=== PATIENT | male | born 1975 | race Caucasian/White ===

== ENCOUNTER 2018-09-05 22:32 | Emergency (ER) | payer OTHER ==
[~2018-09-05] VITALS: Ht 172.7 cm; Wt 90.9 kg
[~2018-09-05 22:32] MED LIST: SM I100T PO; [UNRECOGNIZED DRUG - CODE] PO
[2018-09-05 22:57] LABS: BASO % 0.4 % (0.0-1.0); EOS # 0.2 10^3/uL (0.0-0.50); EOS % 2.1 % (0.0-3.0); HEMATOCRIT 48.3 % (42.0-52.0); HEMOGLOBIN 15.5 g/dl (13.5-17.5); LYMPH # 2.8 10^3/uL (1.5-4.5); LYMPH % 28.8 % (24.0-44.0); MEAN CORPUSCULAR HEMOGLOBIN 29.9 pg (27.0-33.0); MEAN CORPUSCULAR HGB CONC 32.1 g/dl (32.0-36.5); MEAN CORPUSCULAR VOLUME 93.1 fl (80.0-96.0); MONO # 0.5 10^3/uL (0.0-0.8); MONO % 5.3 % (0.0-5.0); NEUTROPHILS % 62.9 % (36.0-66.0); PLATELET COUNT, AUTOMATED 248 10^3/uL (150-450); RED BLOOD COUNT 5.19 10^6/uL (4.30-6.10); WHITE BLOOD COUNT 9.6 10^3/uL (4.0-10.0)
[2018-09-05] MEDS ORDERED: NS 1,000 ML IV ONE (23:00)
[2018-09-05 23:27] LABS: ACETAMINOPHEN LEVEL < 2.0 UG/ML (10.0-30.0); ALBUMIN 4.2 GM/DL (3.2-5.2); ALT/SGPT 36 U/L (12-78); BILIRUBIN,DIRECT < 0.1 MG/DL (0.0-0.2); BILIRUBIN,TOTAL 0.4 MG/DL (0.2-1.0); BLOOD UREA NITROGEN 6 MG/DL (7-18); CALCIUM LEVEL 8.5 MG/DL (8.5-10.1); CARBON DIOXIDE LEVEL 25 MEQ/L (21-32); CHLORIDE LEVEL 109 MEQ/L (98-107); CK-MB VALUE MASS < 1.0 NG/ML (<3.6); CPK CREATINE PHOSPHOKINASE 124 U/L (39-308); CREATININE FOR GFR 0.95 MG/DL (0.70-1.30); ETHYL ALCOHOL (ETHANOL) 0.144 % (0.000-0.010); GLOMERULAR FILTRATION RATE > 60.0 (>60); GLUCOSE, FASTING 121 MG/DL (70-100); MB/CK RELATIVE INDEX 0.81 (< OR =4); SALICYLATE LEVEL 4.8 MG/DL (5.0-30.0); SODIUM LEVEL 144 MEQ/L (136-145); TROPONIN I < 0.02 NG/ML (< 0.10)
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
[2018-09-06] VITALS: BP 121/64
[2018-09-06 00:49] LABS: AMPHETAMINES LEVEL URINE NEGATIVE (NEGATIVE); BARBITURATES URINE NEGATIVE (NEGATIVE); BENZODIAZEPINES URINE NEGATIVE (NEGATIVE); CANNABINOIDS URINE NEGATIVE (NEGATIVE); COCAINE METABOLITE URINE NEGATIVE (NEGATIVE); METHADONE URINE NEGATIVE (NEGATIVE); OPIATES URINE NEGATIVE (NEGATIVE); PHENCYCLIDINE URINE NEGATIVE (NEGATIVE)
--- NOTE | 2018-09-07 07:54 | ECGEPIP ---
Stationary ECG Study [facility] - ED Test Date: 2018-09-05 Pat Name: DARREN YOUNG Department: Room: - Gender: M [employer] Operator: RICHIE : 1975 Requested By: DIONI Real Order Number: [id number] Reading MD: Debbie Winn Measurements Intervals [place] Rate: 76 P: 53 GA: 155 QRS: 35 QRSD: 94 T: 22 QT: 351 QTc: 396 Interpretive Statements SINUS RHYTHM NO OLD ECG FOR COMPARISON Electronically Signed On 09-07-2018 7:54:20 EST by Debbie Winn
== END 2018-09-06 01:29 | disposition home or self-care (01) ==
LOC: M ED 22:32
DX: Z04.1 Encounter for examination and observation following transport accident (principal); F10.929 Alcohol use, unspecified with intoxication, unspecified; F17.210 Nicotine dependence, cigarettes, uncomplicated
CPT/HCPCS: 70450; 72125; 80048; 80076; 80307; 82140; 82550; 82553; 84443; 84484; 85025; 93005; 93041; 94760; 99285; G0480

== ENCOUNTER 2019-03-16 01:53 | Emergency (ER) | payer OTHER, SELFPAY ==
[~2019-03-16] VITALS: Ht 172.7 cm; Wt 90.9 kg
[2019-03-16 01:54] VITALS: BP 141/78
[2019-03-16] MEDS ORDERED: diphenhydrAMINE INJ 50MG/ML VIAL (J1200) IM STA (03:31)
== END 2019-03-16 03:58 | disposition home or self-care (01) ==
LOC: M ED 01:53
DX: S80.261A Insect bite (nonvenomous), right knee, initial encounter (principal); T63.441A Toxic effect of venom of bees, accidental (unintentional), initial encounter; Y92.89 Other specified places as the place of occurrence of the external cause; Z91.030 Bee allergy status

== ENCOUNTER 2020-02-06 16:19 | Emergency (ER) | payer OTHER ==
[~2020-02-06] VITALS: Ht 172.7 cm; Wt 84.8 kg
[2020-02-06 16:19] VITALS: BP 140/75
[2020-02-06] MEDS ORDERED: GUAI1TAB72 PO (16:27)
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
[2020-02-06] MEDS ORDERED: IBUP-1022 PO (17:03)
== END 2020-02-06 17:15 | disposition home or self-care (01) ==
LOC: M ED 16:19
DX: S60.221A Contusion of right hand, initial encounter (principal); W22.8XXA Striking against or struck by other objects, initial encounter; Y92.099 Unspecified place in other non-institutional residence as the place of occurrence of the external cause; Y93.9 Activity, unspecified; Y99.9 Unspecified external cause status; E78.00 Pure hypercholesterolemia, unspecified; Z72.0 Tobacco use; Z91.030 Bee allergy status

== ENCOUNTER 2023-12-30 19:22 | Emergency (ER) | payer MEDICAID, OTHER, SELFPAY ==
[~2023-12-30] VITALS: Ht 172.7 cm; Wt 88.3 kg
[~2023-12-30 19:22] MED LIST changes: +GUAI1TAB72 PO; +IBUP-1022 PO
[2023-12-31] MEDS ORDERED: NAPR-837 PO (02:41)
[2023-12-31] MEDS: NAPROXEN 250 MG TAB PO ONE (03:07)
[2023-12-31 03:20] VITALS: BP 148/78; TEMP 98.8; O2SAT 99
== END 2023-12-31 03:22 | disposition home or self-care (01) ==
LOC: M ED 19:22
DX: M25.562 Pain in left knee (principal); X50.0XXA Overexertion from strenuous movement or load, initial encounter; Y93.67 Activity, basketball; Y92.9 Unspecified place or not applicable; Y99.9 Unspecified external cause status